=== PATIENT | male | born 1965 | race Caucasian/White ===

== ENCOUNTER 2020-02-13 23:11 | Emergency (ER) | payer BC, OTHER ==
[~2020-02-13] VITALS: Ht 175.3 cm; Wt 98.0 kg
[2020-02-13 23:21] VITALS: BP 152/92; Ht 175.3 cm; Wt 98.0 kg
== END 2020-02-14 01:44 | disposition home or self-care (01) ==
LOC: ED 23:11
DX: S32.018A Other fracture of first lumbar vertebra, initial encounter for closed fracture (principal); S32.038A Other fracture of third lumbar vertebra, initial encounter for closed fracture; W14.XXXA Fall from tree, initial encounter; Y93.89 Activity, other specified; Y92.89 Other specified places as the place of occurrence of the external cause; Y99.8 Other external cause status